=== PATIENT | female | born 2000 | race Caucasian/White ===

== ENCOUNTER 2019-04-05 18:28 | Emergency (ER) | payer OTHER ==
[2019-04-05 18:46] VITALS: BMI 30.4
--- NOTE | 2019-04-05 19:18 | PDOC ---
Rapid Medical Evaluation Chief Complaint: Pain Medical Evaluation: Allergies Allergy/AdvReac Type Severity Reaction Status Date / Time No Known Allergies Allergy Verified 04/05/19 18:43 Vital Signs Temp Pulse Resp BP Pulse Ox 98.2 F 100 H 18 136/70 97 04/05/19 18:44 04/05/19 18:44 04/05/19 18:44 04/05/19 18:44 04/05/19 18:44 I have performed a brief in-person evaluation of this patient. The patient presents with a chief complaint of: currently 22 weeks (Estimated due date 08/04/19) presents with lower abdominal pain x 2 weeks. denies fever, URI sxs, sob, cp, n/v, urinary sxs, vaginal bleeding Pertinent physical exam findings: In NAD, gravid abdomen I have ordered the following: Nothing To be sent to L&D for further evaluation The patient will proceed to the ED for further evaluation. 04/05/19 19:16
[2019-04-05 22:02] VITALS: BP 113/72; PULSE 86; TEMP 98.6
== END 2019-04-05 21:40 | disposition home or self-care (01) ==
LOC: JER 18:28
DX: O26.892 Other specified pregnancy related conditions, second trimester (principal); R10.30 Lower abdominal pain, unspecified; Z3A.22 22 weeks gestation of pregnancy
CPT/HCPCS: 99283-25

== ENCOUNTER 2019-08-12 03:30 | Inpatient (IN) | payer OTHER ==
[2019-08-12] MEDS: ELECTROLYTE-148 SOLN 1,000 ML IV SCH ×2 (04:00→10:45)
[2019-08-12] MEDS ORDERED: AMPICILLIN - 2 GM in SODIUM CHLORIDE 100 ML IVPB ONE (04:37)
[2019-08-12] MEDS ORDERED: BUTORPHANOL TARTRATE 1 MG/ML VIAL IVPB ONE (04:37)
--- NOTE | 2019-08-12 04:42 | HP ---
Past Medical History - Admission Chief Complaint: Contractions History of Present Illness: 18yo @41.4 weeks here in labor. No VB/LOF.+FM Preg c/b: +Chlamydia at NOB and 36wk visit, transfer of care History Source: Patient Limitations to Obtaining History: No Limitations - Past Medical History Cardiovascular: No: AFIB, Aneurysm, Aortic Insufficiency, Aortic Stenosis, CAD, CHF, Deep Vein Thrombosis, HTN, Hyperlipdemia, IN, Mitral Insufficiency, Mitral Stenosis, Murmur, Pulmonary Hypertension, Other ...: 1 ...Para: 0 ...Term: 0 ... Weeks Gestation by Dates: 41.1 ...EDC by Dates: 08/04/19 Additional OB History: +Chlamydia Heme/Onc: Yes: Anemia Infectious Disease: No: AIDS, C-Diff, Herpes Zoster, HIV, MRSA, STD's, Tuberculosis, VREF, Other Psych: No: Addictions, Anxiety, Bipolar, Depression, Panic, Psychosis, Schizophrenia, Other Musculoskeletal: No: Bursitis, Chronic low back pain, Hemiparesis, Hemiplegia, Osteoarthritis, Paraplegia, Other Rheumatology: No: Fibromyalgia, Gout, Lupus, Rheumatoid Arthritis, Sarcoidosis, Vasculitis, Other - Past Surgical History Past Surgical History: Yes: None Hx Myomectomy: No Hx Transabdominal Cerclage: No - Smoking History Smoking history: Never smoked - Alcohol/Substance Use Hx Alcohol Use: No - Social History Usual Living Arrangement: Yes: With Parent Do you think of yourself as: Straight/Heterosexual ADL: Independent History of Recent Travel: No Home Medications - Allergies Allergies/Adverse Reactions: Allergies Allergy/AdvReac Type Severity Reaction Status Date / Time No Known Allergies Allergy Verified 04/05/19 18:43 - Home Medications Home Medications: Ambulatory Orders 19 Tablet 1 tab PO DAILY 08/12/19 Review of Systems - Review of Systems Constitutional: reports: No Symptoms Cardiovascular: reports: No Symptoms Respiratory: reports: No Symptoms Physical Exam - Maternity - Abdominal Exam/OB Number of Fetuses: Single Presentation: Vertex Contractions: Yes Regularity: Regular Intensity: Moderate Monitor Mode: External Heart Rate Location: [facility] Category: I Accelerations: Non-Uniform Decelerations: None - Vaginal Exam/OB Vaginal Bleeding: No Speculum Exam: No Dilatation (cm): 5-6 Effacement (%): 90 Amniotic Membrane Status: Intact Presentation: Vertex/Position Station: -3 - Physical Exam Edema: No Assessment/Plan 18yo @ 41.1wks here in labor Admit to L&D Admission labs, PN records not available COVID testing AROM/pitocin prn Stadol/epidural prn Cat I tracing Anticipate CARRIE Powers MD
[2019-08-12] MEDS ORDERED: AMPICILLIN SODIUM 2 GM VIAL ONE (05:13)
[2019-08-12 05:37] VITALS: BMI 34.0
[2019-08-12 05:51] LABS: BASO % 0.2 % (0-2.0); EOS % 0.2 % (0-4.5); HEMATOCRIT 37.9 % (32.4-45.2); HEMOGLOBIN 12.6 GM/dL (10.7-15.3); LYMPH % 17.2 % (8-40); MCH 29.4 pg (25.7-33.7); MCHC 33.3 g/dl (32.0-36.0); MEAN CELL VOLUME 88.2 fl (80-96); MEAN PLT VOLUME 10.7 fl (7.5-11.1); MONO % 5.3 % (3.8-10.2); NEUT % 77.1 % (42.8-82.8); PLATELET COUNT 209 K/MM3 (134-434); RDW 14.7 % (11.6-15.6); WHITE BLOOD COUNT 11.4 K/mm3 (4.0-10.0)
[2019-08-12] MEDS ORDERED: BUTORPHANOL TARTRATE 1 MG/ML VIAL ONE ×2 (06:13)
[2019-08-12 06:15] LABS: INR 0.9 (0.83-1.09); PROTHROMBIN TIME (PATIENT) 10.6 SEC (9.7-13.0)
[2019-08-12 06:18] LABS: ACTIVATED PTT 28.3 SECONDS (25.2-36.5)
[2019-08-12 06:27] LABS: ALBUMIN 2.9 g/dl (3.4-5.0); BILIRUBIN,TOTAL 0.5 mg/dL (0.2-1); BLOOD UREA NITROGEN 13.2 mg/dL (7-18); CALCIUM 9.2 mg/dL (8.5-10.1); CREATININE 0.8 mg/dL (0.55-1.3); POTASSIUM 3.8 mmol/L (3.5-5.1); TOT PROT 6.8 g/dl (6.4-8.2)
[2019-08-12] MEDS ORDERED: ePHEDrine SULFATE 50 MG/1 ML AMPULE ONE (08:13)
[2019-08-12] MEDS ORDERED: PCA PUMP NR ONE (08:14)
[2019-08-12] MEDS ORDERED: FENTANYL/BUPIVACAINE/NS/PF - PCEA - 50 ML DISP.SYRIN EP ONE ×3 (08:14→14:22)
[2019-08-12] MEDS ORDERED: BUPIVACAINE HCL/PF 0.25% (2.5MG/ML) 10 ML VIAL ONE (08:37)
[2019-08-12] MEDS ORDERED: NALOXONE HCL 0.4 MG/ML VIAL IVPUSH PRN (10:07)
[2019-08-12] MEDS ORDERED: FENTANYL/BUPIVACAINE/NS/PF - PCEA - 50 ML DISP.SYRIN EP SCH (10:15)
--- NOTE | 2019-08-12 11:42 | PN ---
Progress Note (short form) - Note Progress Note: 11.30 am OB auto transmission specialist note OB personal support worker Note : Pt admitted by dr herman at 4.40 AM . 18 yrs 41.4/7 weeks on admission was 5-6 cm/90 % /VT /VX _3 , FHR cat-1 , UC 3-4 min.. epidural in progress 11.30 AM cx 6-7 cm/80%/-3, brow presentation, ischial spines prominent con verging lateral carbajal light meconium fhr 150 -160 cat -1 uc 3-4-5 min Selected Entries 08/12/19 08/12/19 09:15 10:00 Temperature 97.9 F Pulse Rate 78 Respiratory 20 Rate Blood Pressure 122/74 O2 Sat by Pulse 98 Oximetry (%) epidural in progress plan delivery by primary c/section pt explained r/b/a not ltd to infection, hemorrhage , injury bladder, bowel ureter etc . teds scd 2.15 PM cx 7cm, edematous , large calput . station -3/-2 / fhr cat-1 . uc 3-4 min . Delay in c/section due to I had another patient with cat-2 tracing who needed urgent attention . later on delay was due to availability of OR . Laboratory Tests 08/12/19 08/12/19 08/12/19 04:15 04:15 04:15 WBC 11.4 H RBC 4.30 Hgb 12.6 Hct 37.9 Plt Count 209 PT with INR 10.60 INR 0.90 PTT (Actin FS) 28.3 Sodium 139 Potassium 3.8 Chloride 108 H Carbon Dioxide 18 L Anion Gap 13 BUN 13.2 Creatinine 0.8 Random Glucose 81 Calcium 9.2 Total Bilirubin 0.5 AST 115 H ALT 248 H Urine Protein HIV Ag/Ab Combo Qual 08/12/19 08/12/19 04:15 15:15 WBC RBC Hgb Hct Plt Count PT with INR INR PTT (Actin FS) Sodium Potassium Chloride Carbon Dioxide Anion Gap BUN Creatinine Random Glucose Calcium Total Bilirubin AST ALT Urine Protein Negative HIV Ag/Ab Combo Qual Negative pt taken to OR after 4.00 PM BP noted fluctuating 130--140 /82/99 Selected Entries 08/12/19 08/12/19 08/12/19 12:45 13:00 13:15 Pulse Rate 79 76 70 Blood Pressure 145/90 130/91 132/82 07/07/20 07/07/20 07/07/20 13:45 14:00 14:15 Pulse Rate 79 79 71 Blood Pressure 141/86 138/88 141/90 08/12/19 08/12/19 08/12/19 14:30 15:15 15:30 Pulse Rate 79 60 67 Blood Pressure 135/84 132/75 135/76 Problem List - Problems (1) Post term , 41 weeks Code(s): O48.0 - POST-TERM ; Z3A.41 - 41 WEEKS GESTATION OF (2) Labor established Code(s): PGZ9000 - (3) Brow presentation of fetus Code(s): O32.3XX0 - MATERNAL CARE FOR FACE, BROW AND CHIN PRESENTATION, UNSP (4) CPD (cephalo-pelvic disproportion) Code(s): O33.9 - MATERNAL CARE FOR DISPROPORTION, UNSPECIFIED (5) Elevated liver enzymes Code(s): R74.8 - ABNORMAL LEVELS OF OTHER SERUM ENZYMES (6) Gestational HTN Code(s): O13.9 - GESTATIONAL HTN W/O SIGNIFICANT PROTEINURIA, UNSP TRIMESTER
[2019-08-12] MEDS ORDERED: CITRIC ACID/SODIUM CITRATE 30 ML UNIT-DOSE CUP PO ONE (12:00)
[2019-08-12] MEDS ORDERED: ONDANSETRON 4 MG/2 ML VIAL IVPUSH PRN (14:09)
[2019-08-12] MEDS ORDERED: LIDO 2%/EPI 1:200000 PRESRVFRE (20 ML SDVIAL) ONE (14:26)
[2019-08-12] MEDS ORDERED: SODIUM BICARBONATE 8.4% 50 MEQ/50 ML VIAL ONE (14:44)
[2019-08-12] MEDS ORDERED: ceFAZolin SODIUM 1 GM VIAL ONE (14:44)
[2019-08-12] MEDS ORDERED: morphine SULFATE/Preservative Free 0.5 MG/ML (1cc Syringe) ONE ×4 (15:53)
[2019-08-12] MEDS ORDERED: OXYTOCIN 20 UNITS in 0.9% NS 20 UNIT/1,000 ML INFUS.BAG IV ONE ×2 (16:18→17:23)
[2019-08-12] MEDS: OXYTOCIN 20 UNITS in 0.9% NS 20 UNIT/1,000 ML INFUS.BAG IV SCH (16:30)
[2019-08-12 17:24] LABS: EPI CELLS 9 /uL (0-25.1); HYALINE CASTS 1 /uL (0-3.1); URINE APPEARANCE CLEAR; URINE BACTERIA 9 /uL (0-1359); URINE BILIRUBIN NEGATIVE (NEGATIVE); URINE COLOR YELLOW; URINE GLUCOSE (UA) NEGATIVE (NEGATIVE); URINE KETONE NEGATIVE (NEGATIVE); URINE LEUK ESTERASE NEGATIVE (NEGATIVE); URINE NITRITE NEGATIVE (NEGATIVE); URINE PROTEIN NEGATIVE (NEGATIVE); URINE RBC 34 /uL (0-23.9); URINE UROBILINOGEN 0.2 mg/dL (0.2-1.0); URINE WBC 9 /uL (0-25.8)
[2019-08-12] MEDS ORDERED: METHYLERGONOVINE MALEATE 0.2 MG/1 ML AMP IM PRN (17:45)
[2019-08-12] MEDS ORDERED: BENZOCAINE 20% 57 GM BOTTLE TP PRN (17:45)
[2019-08-12] MEDS ORDERED: BENZOCAINE 28 GM HEMORRHOIDAL OINTMENT TP PRN (17:45)
[2019-08-12] MEDS ORDERED: WITCH HAZEL 50% (TUCKS) 40 PAD/JAR PAD TP PRN (17:45)
[2019-08-12] MEDS ORDERED: ACETAMINOPHEN 1000 MG/100 ML VIAL (NON FORMULARY) IVPB PRN (17:50)
--- NOTE | 2019-08-12 17:59 | PN ---
Delivery - Delivery Section: Primary, Low Flap Transverse (indication brow presntation, CPD) Type of Anesthesia: Spinal EBL (cc): 600 (intraop u/out put 150 ml) Delivery, Single - Stages of Labor Date 1st Stage Initiatied: 08/12/19 Time 1st Stage Initiated: 01:00 Date of Delivery: 08/12/19 Time of Delivery: 16:25 Date Placenta Delivered: 08/12/19 Time Placenta Delivered: 16:27 Placenta: Yes: Manual Removal, Uterine Exploration - Condition of Sports Marketer/Precision Farming Specialist Present: Yes Name: Christine Castillo Gender: Male Weight: 7 lb 2 oz Position: OP (brow presentatio) Total Hours ROM (Hrs/Mins): 4hrs meconium - 1 Minute Total Score: 8 5 Minutes Total Score: 9 - [place] Feeding Plan Initial Plan: Elected not to breastfeed exclusively throughout hospitalization Remarks - Remarks Remarks: 18 yrs 41.4 weeks admitted in labor Gbs neg intrapartum course cat-1 AST 115, ALT 248 intrapartum BP range 116--148/82-99, bp max 148/91 urine protein neg . intraop course uneventful. Intraop Iv 2 gm iv ancef given post op due to GHTN with severe faetures will give Iv Mgso4
[2019-08-12] MEDS ORDERED: MAGNESIUM 4GM/H20 - 4 GM/100 ML IVPB IVPB SCH (18:15)
[2019-08-12] MEDS ORDERED: MAGNESIUM SULFATE 20GM/500ML - 20 GM/500 ML INFUS.BAG IV SCH (18:30)
[2019-08-12] MEDS ORDERED: MAGNESIUM 4GM/H20 - 4 GM/100 ML IVPB IVPB ONE (18:42)
[2019-08-12] MEDS ORDERED: MAGNESIUM SULFATE 20GM/500ML - 20 GM/500 ML INFUS.BAG ONE (18:42)
[2019-08-12 18:52] LABS: ARTERIAL BLD GAS O2 SATURATION 21.9 mmHg (95-98); ARTERIAL BLOOD GAS BASE EXCESS -3.8 mmol/L (-2-2); ARTERIAL BLOOD GAS pH 7.343 (7.350-7.450)
[2019-08-12 18:54] LABS: VENOUS BASE EXCESS -2.9 mmol/L (-2-2); VENOUS O2 SATURATION 55.5 % (70-80); VENOUS PCO2 47.4 mmHg (38-52); VENOUS PH 7.313 (7.310-7.410)
[2019-08-12 18:59] LABS: ARTERIAL BLOOD GAS PO2 16.7 mmHg (80-100)
[2019-08-12] MEDS ORDERED: ELECTROLYTE-148 SOLN 1,000 ML IV SCH (19:00)
[2019-08-12] MEDS ORDERED: CEFAZOLIN 1 GM/D5W 1 GM/50 ML BAG ONE (22:09)
[2019-08-12] MEDS: CEFAZOLIN 1 GM/D5W 1 GM/50 ML BAG IVPB SCH (23:01)
[2019-08-13] MEDS ORDERED: OXYTOCIN 20 UNITS in 0.9% NS 20 UNIT/1,000 ML INFUS.BAG IV ONE (05:52)
[2019-08-13] MEDS: OXYTOCIN 20 UNITS in 0.9% NS 20 UNIT/1,000 ML INFUS.BAG IV SCH (05:53)
[2019-08-13 06:06] LABS: BASO % 0.1 % (0-2.0); EOS % 0.1 % (0-4.5); HEMATOCRIT 30.4 % (32.4-45.2); HEMOGLOBIN 10.1 GM/dL (10.7-15.3); LYMPH % 13.1 % (8-40); MCH 29.5 pg (25.7-33.7); MCHC 33.1 g/dl (32.0-36.0); MEAN CELL VOLUME 89.1 fl (80-96); MEAN PLT VOLUME 10.3 fl (7.5-11.1); MONO % 4.7 % (3.8-10.2); PLATELET COUNT 177 K/MM3 (134-434); RBC 3.42 M/mm3 (3.60-5.2); RDW 14.7 % (11.6-15.6); WHITE BLOOD COUNT 14.5 K/mm3 (4.0-10.0)
[2019-08-13] MEDS ORDERED: CEFAZOLIN 1 GM/D5W 1 GM/50 ML BAG ONE (06:06)
[2019-08-13 06:25] LABS: BILIRUBIN,TOTAL 0.8 mg/dL (0.2-1); BLOOD UREA NITROGEN 6.7 mg/dL (7-18); CALCIUM 7.1 mg/dL (8.5-10.1); CREATININE 0.6 mg/dL (0.55-1.3); POTASSIUM 3.5 mmol/L (3.5-5.1)
[2019-08-13] MEDS: CEFAZOLIN 1 GM/D5W 1 GM/50 ML BAG IVPB SCH ×2 (07:00→15:15)
--- NOTE | 2019-08-13 07:49 | OP ---
DATE OF OPERATION: 08/12/2019 PREOPERATIVE DIAGNOSES: A 41.4-week gestation, brow presentation, cephalopelvic disproportion. SURGEON: Vitor Cartwright MD MEDICAL INFORMATION SPECIALIST SURGEON: STANISLAV Wells ANESTHESIOLOGIST: Akosua Roberts MD ANESTHESIA: Epidural. CLOTH FINISHING RANGE OPERATOR: Christine Castillo MD FINDINGS: This is a 18-year-old 1, para 0, at 41.4 weeks was admitted in labor 5 to 6 cm dilated, she received epidural, membranes were ruptured, she was about 6 to 7 cm at 11:30 a.m. and brow presentation was noted, and the prominent skeletal spine and the converging lateral carbajal were noted. Fluid was meconium. It was decided to perform the for her, and also patient has blood pressures ranging between 140 to 148, 90 to 99 diastolic pressures, and the liver enzymes were elevated, AST was 115 and ALT was 248. Urine protein was negative. DESCRIPTION OF PROCEDURE: SCD stockings were given. Abdomen was shaved, prepped. Mishra catheter was in situ. She was taken to the operating room table. Abdomen was painted and draped in usual manner. Epidural analgesia was converted into epidural anesthesia, and then the level of anesthesia was checked. Pfannenstiel incision was made. The skin, subcutaneous tissue, anterior rectus sheath were incised transversely. Bleeding points were clamped and cauterized. Rectus muscle was from the rectus sheath. Parietal peritoneum was opened vertically. Lower flap of bladder peritoneum was incised transversely. Lower uterine segment was incised transversely and the baby was delivered, by flexing head , was brought out of the incision. Large caput also was noted. Immediate suction was done. Oral and nasal suction. Amniotic fluid was moderately meconium stained. Cord was clamped, and the baby was handed over to the edge bander hand. Baby's Apgars were 8 and 9, and the weight was 7 pounds 2 ounces. Cord segment was sent for the cord blood gas, and then cord blood was collected. Placenta was removed completely with the membranes, sent for pathology. Uterine cavity was cleaned, and then uterine incision was closed in 2 layers. First there was a continuous locking with the Biosyn 0 suture, 2nd layer was continuous intermittent locking with the Biosyn 0 suture. Hemostasis was checked, and then bladder peritoneum was closed with Biosyn 0 suture. Both tubes and ovaries were normal. Irrigation was done. Sponge, instrument, needle count was correct, and then closure of the abdomen was done. Parietal peritoneum was closed with Vicryl 0 suture. Muscles were approximated together with Vicryl 0 interrupted sutures, and then underneath the rectus sheath the hemostasis was checked. Anterior rectus sheath was closed with Vicryl 0 suture. Hemostasis was verified in subcutaneous tissue. Subcutaneous tissue was approximated with 2-0 Vicryl suture, and then skin was approximated with the bharti. Pressure dressing was given, and intraoperative urine output was 150 mL. Blood clots were removed from the vagina, and estimated blood loss was 600 mL. Patient was transferred to the recovery room in stable condition. She received 2 g of IV Ancef prior to the incision. VITOR CARTWRIGHT M.D. [id number] MTDD
--- NOTE | 2019-08-13 08:51 | PN ---
Progress Note (short form) - Note Progress Note: nesthesia post op note POD#1. S/P under spinal anesthesia with duramorph. VSS. Pain well controlled. Ambulating. No apparent post anesthesia complications.
--- NOTE | 2019-08-13 08:59 | PN ---
Post Progress Note - Subjective Subjective: no c/o pain , scale 4/10 . Post Day: 1 Type of Delivery: Primary C/S Vital Signs: Vital Signs Temperature 98.2 F 08/13/19 06:48 Pulse Rate 84 08/13/19 07:00 Respiratory Rate 18 08/13/19 07:00 Blood Pressure 127/71 08/13/19 07:00 O2 Sat by Pulse Oximetry (%) 98 08/12/19 19:00 Selected Entries 08/13/19 08/13/19 08/13/19 03:00 04:00 05:00 Temperature Pulse Rate 88 95 H 81 Blood Pressure 121/69 119/74 130/70 08/13/19 08/13/19 08/13/19 06:00 06:48 07:00 Temperature 99.8 F H 98.2 F Pulse Rate 83 Blood Pressure 123/74 127/71 Laboratory Tests 08/12/19 08/12/19 08/13/19 04:15 23:00 05:30 WBC 14.5 H RBC 3.42 L Hgb 10.1 L Hct 30.4 L D Plt Count 177 Sodium Potassium Chloride Carbon Dioxide Anion Gap Creatinine Random Glucose Magnesium 3.7 H AST ALT Hep Bs Antigen Negative Rubella IgG Antibody 6.98 08/13/19 08/13/19 05:30 05:30 WBC RBC Hgb Hct Plt Count Sodium 141 Potassium 3.5 Chloride 111 H Carbon Dioxide 22 Anion Gap 8 Creatinine 0.6 Random Glucose 72 L Magnesium 4.5 H AST 160 H ALT 289 H Hep Bs Antigen Rubella IgG Antibody Breast Exam: Yes: Soft, Other (plans to bottle feed only ). No: Engorged Uterus: Yes: Fundus Firm, Non-tender Abdomen/GI: Yes: Abdomen soft, Tolerating PO (clear liquid diet ). No: Abd ominal Distention, Passing flatus Lochia: Yes: Rubra Lochia, amount: Small Extremities: Yes: Calves non-tender (scd in situ ), Edema Perineum: Yes: Intact Activity: Other (pt not oob yet) - Labs Labs: CBC WBC 14.5 K/mm3 (4.0-10.0) H 08/13/19 05:30 RBC 3.42 M/mm3 (3.60-5.2) L 08/13/19 05:30 Hgb 10.1 GM/dL (10.7-15.3) L 08/13/19 05:30 Hct 30.4 % (32.4-45.2) L D 08/13/19 05:30 MCV 89.1 fl (80-96) 08/13/19 05:30 MCH 29.5 pg (25.7-33.7) 08/13/19 05:30 MCHC 33.1 g/dl (32.0-36.0) 08/13/19 05:30 RDW 14.7 % (11.6-15.6) 08/13/19 05:30 Plt Count 177 K/MM3 (134-434) 08/13/19 05:30 MPV 10.3 fl (7.5-11.1) 08/13/19 05:30 Absolute Neuts (auto) 11.9 K/mm3 (1.5-8.0) H 08/13/19 05:30 Neutrophils % 82.0 % (42.8-82.8) 08/13/19 05:30 Lymphocytes % 13.1 % (8-40) D 08/13/19 05:30 Monocytes % 4.7 % (3.8-10.2) 08/13/19 05:30 Eosinophils % 0.1 % (0-4.5) 08/13/19 05:30 Basophils % 0.1 % (0-2.0) 08/13/19 05:30 Nucleated RBC % 0 % (0-0) 08/13/19 05:30 Laboratory Tests 08/13/19 05:30 Sodium 141 Potassium 3.5 Chloride 111 H Carbon Dioxide 22 Anion Gap 8 Creatinine 0.6 Est GFR (CKD-EPI)AfAm 153.15 Est GFR (CKD-EPI)NonAf 132.14 Random Glucose 72 L Calcium 7.1 L Total Bilirubin 0.8 AST 160 H ALT 289 H Alkaline Phosphatase 124 H Total Protein 5.0 L Albumin 2.0 L Laboratory Tests 08/12/19 08/12/19 08/12/19 04:15 04:15 04:15 Syphilis Serology Non-reactive COVID-19 ([place]) Hep Bs Antigen Negative HIV Ag/Ab Combo Qual Negative Rubella IgG Antibody 6.98 08/12/19 04:15 Syphilis Serology COVID-19 ([place]) Pending Hep Bs Antigen HIV Ag/Ab Combo Qual Rubella IgG Antibody Other Findings, Remarks: Rs Cta reflexs normal i/o 1060/1250 Problem List - Problems (1) Post term , 41 weeks Code(s): O48.0 - POST-TERM ; Z3A.41 - 41 WEEKS GESTATION OF (2) Labor established Code(s): [id number] - (3) Brow presentation of fetus Code(s): O32.3XX0 - MATERNAL CARE FOR FACE, BROW AND CHIN PRESENTATION, UNSP (4) CPD (cephalo-pelvic disproportion) Code(s): O33.9 - MATERNAL CARE FOR DISPROPORTION, UNSPECIFIED (5) Elevated liver enzymes Code(s): R74.8 - ABNORMAL LEVELS OF OTHER SERUM ENZYMES (6) Gestational HTN Code(s): O13.9 - GESTATIONAL HTN W/O SIGNIFICANT PROTEINURIA, UNSP TRIMESTER (7) Status post section routine follow-up Code(s): Z39.2 - ENCOUNTER FOR ROUTINE FOLLOW-UP; Z98.891 - HISTORY OF UTERINE SCAR FROM PREVIOUS SURGERY Assessment/Plan s/p post c/section , liver enz rising , BP are normal , protein neg , IV MgSo4 will discontinue after 16 hrs . uric acid ordered, urine protein/cr ratio . Plan : ct po care will repeat liver enz tomorrow
[2019-08-13 09:25] LABS: URIC ACID 5.2 mg/dL (2.6-7.2)
[2019-08-13] MEDS ORDERED: oxyCODONE HCL 5 MG TABLET ONE (10:45)
[2019-08-13] MEDS: oxyCODONE HCL 5 MG TABLET PO PRN ×2 (10:45→23:17)
[2019-08-13] MEDS: ENOXAPARIN NA (PORCINE) 40 MG/0.4 ML DISP.SYRIN SQ SCH (10:56)
[2019-08-13] MEDS: FERROUS SO4 325 MG TABLET (FP) PO SCH ×2 (10:56→17:32)
[2019-08-13] MEDS: PRENATAL VITAMINS W/ FOLIC ACID TABLET (FP) PO SCH (10:56)
[2019-08-13] MEDS: ACETAMINOPHEN 325 MG TABLET (FP) PO PRN (15:20)
[2019-08-13] MEDS: IBUPROFEN 600 MG TABLET (FP) PO PRN ×2 (15:21→23:17)
[2019-08-13] MEDS: SIMETHICONE 80 MG TAB.CHEW (FP) PO PRN ×2 (15:22→23:18)
[2019-08-13] MEDS ORDERED: BISACODYL 10 MG SUPP.RECT RC PRN (17:46)
[2019-08-13] MEDS: SENNOSIDES/DOCUSATE COMBO (SENNA PLUS) TABLET (UD) PO PRN (23:18)
--- NOTE | 2019-08-14 07:53 | DS ---
Physical Examination Vital Signs: Vital Signs Temperature 98.2 F 08/14/19 06:00 Pulse Rate 68 08/14/19 06:00 Respiratory Rate 20 08/14/19 06:00 Blood Pressure 119/74 08/14/19 06:00 O2 Sat by Pulse Oximetry (%) 98 08/12/19 19:00 Findings/Remarks: Ambulating, bottle feeding, tolerating Po, lochia decreased, Pp/post-op precautions discussed. All questions answered Constitutional: Yes: No Distress Eyes: Yes: WNL HENT: Yes: Atraumatic Neck: Yes: Supple Cardiovascular: Yes: Regular Rate and Rhythm Respiratory: Yes: Regular Gastrointestinal: Yes: Normal Bowel Sounds ...Rectal Exam: Yes: Other Renal/: Yes: Other Breast(s): Yes: Other Musculoskeletal: Yes: WNL Extremities: Yes: WNL (no CT tenderness on exam) Edema: Yes Edema: LLE: Trace, RLE: Trace Integumentary: Yes: WNL Wound/Incision: Yes: Well Approximated, Fredi Intact Neurological: Yes: Alert, Oriented ...Motor Strength: WNL Psychiatric: Yes: Alert, Oriented Labs: CBC, BMP 08/13/19 05:30 08/13/19 05:30 Discharge Summary Problems reviewed: Yes Reason For Visit: LABOR ADMIT Current Active Problems Brow presentation of fetus (Acute) CPD (cephalo-pelvic disproportion) (Acute) Elevated liver enzymes (Acute) Gestational HTN (Acute) Labor established (Acute) Post term , 41 weeks (Acute) Status post section routine follow-up (Acute) - Instructions Referrals: Trevon Kraft MD [Primary Care Provider] - - Home Medications Comprehensive Discharge Medication List: Ambulatory Orders 19 Tablet 1 tab PO DAILY 08/12/19
--- NOTE | 2019-08-14 07:57 | PN ---
Post Progress Note - Subjective Subjective: ambulating, tolerating PO, lochia decreased, voiding, bottle feeding, no H/A, no vision problems, no RUQ pain. Post Day: 2 Type of Delivery: Primary C/S Vital Signs: Vital Signs Temperature 98.2 F 08/14/19 06:00 Pulse Rate 68 08/14/19 06:00 Respiratory Rate 20 08/14/19 06:00 Blood Pressure 119/74 08/14/19 06:00 O2 Sat by Pulse Oximetry (%) 98 08/12/19 19:00 Breast Exam: Yes: Soft Uterus: Yes: Fundus Firm Incision: Yes: Fredi intact Abdomen/GI: Yes: Abdomen soft Lochia, amount: Moderate Extremities: Yes: Calves non-tender Perineum: Yes: Intact Activity: Ambulating - Labs Labs: CBC WBC 14.5 K/mm3 (4.0-10.0) H 08/13/19 05:30 RBC 3.42 M/mm3 (3.60-5.2) L 08/13/19 05:30 Hgb 10.1 GM/dL (10.7-15.3) L 08/13/19 05:30 Hct 30.4 % (32.4-45.2) L D 08/13/19 05:30 MCV 89.1 fl (80-96) 08/13/19 05:30 MCH 29.5 pg (25.7-33.7) 08/13/19 05:30 MCHC 33.1 g/dl (32.0-36.0) 08/13/19 05:30 RDW 14.7 % (11.6-15.6) 08/13/19 05:30 Plt Count 177 K/MM3 (134-434) 08/13/19 05:30 MPV 10.3 fl (7.5-11.1) 08/13/19 05:30 Absolute Neuts (auto) 11.9 K/mm3 (1.5-8.0) H 08/13/19 05:30 Neutrophils % 82.0 % (42.8-82.8) 08/13/19 05:30 Lymphocytes % 13.1 % (8-40) D 08/13/19 05:30 Monocytes % 4.7 % (3.8-10.2) 08/13/19 05:30 Eosinophils % 0.1 % (0-4.5) 08/13/19 05:30 Basophils % 0.1 % (0-2.0) 08/13/19 05:30 Nucleated RBC % 0 % (0-0) 08/13/19 05:30 Assessment/Plan 18 y/o on POD # 2 in stable condition, labile BP with most in normal range, asymptomatic, elevated LFT. -Continue PP/psot-op care -F/U AM repeat labs -Monitor BP -Consider D/C on POD # 3 vs 4
[2019-08-14 08:34] LABS: BASO % 0.3 % (0-2.0); EOS % 1.8 % (0-4.5); HEMATOCRIT 27.4 % (32.4-45.2); HEMOGLOBIN 9.3 GM/dL (10.7-15.3); LYMPH % 19.6 % (8-40); MCH 30.6 pg (25.7-33.7); MCHC 34.1 g/dl (32.0-36.0); MEAN CELL VOLUME 89.6 fl (80-96); MEAN PLT VOLUME 10.1 fl (7.5-11.1); MONO % 5.4 % (3.8-10.2); NEUT % 72.9 % (42.8-82.8); PLATELET COUNT 204 K/MM3 (134-434); RBC 3.06 M/mm3 (3.60-5.2); RDW 14.7 % (11.6-15.6); WHITE BLOOD COUNT 10.5 K/mm3 (4.0-10.0)
[2019-08-14 08:55] LABS: ALBUMIN 2.2 g/dl (3.4-5.0); BILIRUBIN,TOTAL 0.6 mg/dL (0.2-1); CALCIUM 8.2 mg/dL (8.5-10.1); CREATININE 0.6 mg/dL (0.55-1.3); POTASSIUM 3.9 mmol/L (3.5-5.1); TOT PROT 5.6 g/dl (6.4-8.2)
[2019-08-14] MEDS: PRENATAL VITAMINS W/ FOLIC ACID TABLET (FP) PO SCH (09:18)
[2019-08-14] MEDS: FERROUS SO4 325 MG TABLET (FP) PO SCH ×2 (09:18→16:48)
[2019-08-14] MEDS: ENOXAPARIN NA (PORCINE) 40 MG/0.4 ML DISP.SYRIN SQ SCH (09:18)
[2019-08-14] MEDS: ACETAMINOPHEN 325 MG TABLET (FP) PO PRN ×2 (09:22→21:20)
[2019-08-14] MEDS: IBUPROFEN 600 MG TABLET (FP) PO PRN ×2 (09:22→21:19)
[2019-08-14] MEDS: SIMETHICONE 80 MG TAB.CHEW (FP) PO PRN (09:23)
[2019-08-14] MEDS: SENNOSIDES/DOCUSATE COMBO (SENNA PLUS) TABLET (UD) PO PRN (21:21)
--- NOTE | 2019-08-15 08:30 | DS ---
Physical Examination Vital Signs: Vital Signs Temperature 98.6 F 08/14/19 22:00 Pulse Rate 77 08/14/19 22:00 Respiratory Rate 18 08/14/19 22:00 Blood Pressure 134/73 08/14/19 22:00 O2 Sat by Pulse Oximetry (%) 98 08/12/19 19:00 Constitutional: Yes: Well Nourished, No Distress, Calm Eyes: Yes: WNL, Conjunctiva Clear, EOM Intact HENT: Yes: WNL, Atraumatic, Normocephalic Neck: Yes: WNL, Supple, Trachea Midline Cardiovascular: Yes: WNL, Regular Rate and Rhythm Respiratory: Yes: WNL, Regular, CTA Bilaterally Gastrointestinal: Yes: WNL, Normal Bowel Sounds Musculoskeletal: Yes: WNL Extremities: Yes: WNL Edema: No Integumentary: Yes: WNL Neurological: Yes: WNL, Alert, Oriented ...Motor Strength: WNL Psychiatric: Yes: WNL Labs: CBC, BMP 08/14/19 07:23 08/14/19 07:28 Discharge Summary Problems reviewed: Yes Reason For Visit: LABOR ADMIT Current Active Problems Brow presentation of fetus (Acute) CPD (cephalo-pelvic disproportion) (Acute) Elevated liver enzymes (Acute) Gestational HTN (Acute) Labor established (Acute) Post term , 41 weeks (Acute) Status post section routine follow-up (Acute) Procedures: Principal: PLTCS Hospital Course: Patient presented in labor She had an PLTCS for suspected CPD She met all postop milestones She was discharged home in stable condition Haris Powers MD - Instructions Diet, Activity, Other Instructions: Post Instructions DIET: Continue good diet high in protein, calcium, and iron rich foods. Drink at least eight (8) glasses of water daily in addition to other fluids. ___ Regular diet MEDICATIONS: Continue vitamins and iron as previously directed. Motrin and Tylenol may be taken for minor discomfort. ACTIVITY: Mild to moderate exercise may be started in two (2) weeks. Take frequent rest periods. Resume normal activity after six (6) week check up. WOUND CARE OF OPERATIVE SITE: Continue use of perineal bottle until vaginal discharge stops. Keep area clean. Shower daily. Keep abdominal wound dry. Report any drainage or redness to physician. Tub baths, tampons and douches are not permitted for [address] Bottle feeding BREAST CARE: (For those that are not breast feeding): If engorgement occurs: Wear tight fitting bra. Take Tylenol or Motrin for pain. Apply cold packs (ice in bags to each breast ) FAMILY PLANNING: There are many control alternatives to pursue and they should be discussed at your first office visit. You may resume sexual activity after your six (6) week check up. (Remember, breast feeding is not a contraceptive) NEXT PHYSICIAN APPOINTMENT: Be certain to call for a one (1) week appointment, unless otherwise directed. RTC 1 WEEK FOR WOUND Check, JOVANY REMOVAL. REPEAT LIVER ENZ FOLLOW UP IN THE CLINIC. Call Clinic or got to Emergency Dept if you have any of the following: Heavy vaginal bleeding Painful urination Leg pain Unusual odor noted to vaginal bleeding High fever Red streaking noted on breast WATCH FOR RT UPPER QUADRANT PAIN OR HEADACHE OR VOMITING Referrals: Brenda Cartwright MD [Staff Physician] - Trevon Kraft MD [Primary Care Provider] - - Home Medications Comprehensive Discharge Medication List: Ambulatory Orders 19 Tablet 1 tab PO DAILY 08/12/19 Acetaminophen [Tylenol .Regular Strength -] 500 mg PO Q4H PRN #30 tablet 08/14/19 Ferrous Sulfate [Feosol] 325 mg PO BIDWM #60 tab 08/14/19 Ibuprofen [Motrin -] 600 mg PO Q4H PRN #30 tablet 08/14/19 Vitamins (Sjr) - 1 tab PO DAILY #30 tablet 08/14/19 Sennosides/Docusate Sodium [Pericolace -] 2 tablet PO HS PRN #30 tablet 08/14/19
[2019-08-15 09:04] LABS: BASO % 0.2 % (0-2.0); EOS % 1.1 % (0-4.5); HEMOGLOBIN 9.5 GM/dL (10.7-15.3); LYMPH % 13.3 % (8-40); MCHC 33.8 g/dl (32.0-36.0); MEAN CELL VOLUME 88.8 fl (80-96); MEAN PLT VOLUME 9.3 fl (7.5-11.1); MONO % 3.9 % (3.8-10.2); NEUT % 81.5 % (42.8-82.8); PLATELET COUNT 236 K/MM3 (134-434); RBC 3.15 M/mm3 (3.60-5.2); RDW 14.7 % (11.6-15.6); WHITE BLOOD COUNT 10.2 K/mm3 (4.0-10.0)
[2019-08-15] MEDS: FERROUS SO4 325 MG TABLET (FP) PO SCH (09:35)
[2019-08-15] MEDS: PRENATAL VITAMINS W/ FOLIC ACID TABLET (FP) PO SCH (09:36)
[2019-08-15] MEDS: ENOXAPARIN NA (PORCINE) 40 MG/0.4 ML DISP.SYRIN SQ SCH (09:36)
[2019-08-15 09:40] LABS: ALBUMIN 2.4 g/dl (3.4-5.0); BILIRUBIN,TOTAL 0.4 mg/dL (0.2-1); CALCIUM 8.5 mg/dL (8.5-10.1); CREATININE 0.6 mg/dL (0.55-1.3); POTASSIUM 3.6 mmol/L (3.5-5.1)
[2019-08-15 09:50] VITALS: BP 140/91; PULSE 73; TEMP 98.3
--- NOTE | 2019-08-18 17:13 | PATH ---
Surgical Pathology Report Patient Name: PEPE NICHOLAS Med. Rec. #: [id number] /Age/Gender: 2000 (Age: 18) / F Account: [id number] Location: [facility] OBS/OTOLARYNGOLOGY PHYSICIAN Taken: 08/12/2019 Received: 08/13/2019 Reported: 08/18/2019 Physicians: Ketan Artis Specimen(s) Received PLACENTA Clinical History , breech presentation, meconium staining, primary Final Diagnosis PLACENTA, SECTION: 513 G THIRD TRIMESTER PLACENTA, TRIVASCULAR UMBILICAL CORD, AND PLACENTAL MEMBRANES WITH MECONIUM-LADEN MACROPHAGES Electronically Signed Emily Garnica M.D. Gross Description The specimen is received fresh labeled placenta and is a 513 gram, 18.5 x 15.0 x 2.8 cm. placenta with attached membranes and umbilical cord. The attached membranes are nolasco green, meconium stained, translucent with focal opacities and insert marginally. The umbilical cord measures 22 cm. in length and averages 0.9 cm. in diameter. The cord inserts eccentrically, 5 cm. to the nearest margin. No true knots or strictures are identified. Cut surface of the umbilical cord reveals 3 vessels. The surface is truong green, meconium stained with minimal fibrin a position and appropriate caliber vessels. The maternal surface is red-brown with focal defects. Sectioning reveals red-brown, spongy parenchyma. No lesions are identified. Transfer And Line Up Worker sections are submitted in three cassettes as follows: 1- membrane rolls and umbilical cord; 2-3- full thickness sections of placenta. /08/15/2019 [facility]/08/15/2019
== END 2019-08-15 12:43 | disposition home or self-care (01) | DRG 540 ==
LOC: JDEL 03:30 → JLDR 04:00 → J3W 08-13 15:04
PROVIDERS: ADMIT Obstetrics & Gynecology; ATTEND Obstetrics & Gynecology
PROC: 10D00Z1 Extraction of Products of Conception, Low, Open Approach (ICD-10-PCS; principal; 2019-08-12)
PROC: 10907ZC Drainage of Amniotic Fluid, Therapeutic from Products of Conception, Via Natural or Artificial Opening (ICD-10-PCS; 2019-08-12)
DX: O48.0 Post-term pregnancy (principal); O32.3XX0 Maternal care for face, brow and chin presentation, not applicable or unspecified; O33.9 Maternal care for disproportion, unspecified; O13.3 Gestational [pregnancy-induced] hypertension without significant proteinuria, third trimester; O77.0 Labor and delivery complicated by meconium in amniotic fluid; R74.8 Abnormal levels of other serum enzymes; O98.82 Other maternal infectious and parasitic diseases complicating childbirth; Z3A.41 41 weeks gestation of pregnancy; Z37.0 Single live birth
CPT/HCPCS: 36415; 36600; 80053; 81003; 82565; 82803; 83735; 84156; 84550; 85025; 85610; 85730; 86762; 86780; 86850; 86900; 86901; 87340; 87389; 88307-TC; U0003

== ENCOUNTER 2020-07-08 17:46 | Emergency (ER) | payer OTHER ==
[2020-07-08 17:54] VITALS: BP 112/71; PULSE 85; TEMP 98; BMI 31.5
== END 2020-07-08 20:18 | disposition home or self-care (01) ==
LOC: JERFT 17:46
DX: R55 Syncope and collapse (principal); S06.0X0A Concussion without loss of consciousness, initial encounter
CPT/HCPCS: 93005; 93010; 99284-25